=== PATIENT | female | born 1990 | race African-American/Black ===

== ENCOUNTER 2017-04-27 19:29 | Emergency (ER) | payer OTHER ==
[~2017-04-27] VITALS: Ht 160 cm; Wt 70.0 kg
[~2017-04-27 19:29] MED LIST: NO MEDS
[2017-04-27] MEDS ORDERED: ONDANSETRON HCL 4MG/2ML VIAL IV STA (20:07)
[2017-04-27] MEDS ORDERED: SODIUM CHLORIDE 0.9% 1,000 ML IV ONE (21:42)
[2017-04-27] MEDS: KETOROLAC 30MG/ML VIAL IV STA ×2 (22:01→22:29)
[2017-04-27] MEDS ORDERED: KETOROLAC 30MG/ML VIAL IV STA (22:08)
[2017-04-27 22:51] LABS: INR 1.1; PROTHROMBIN TIME 11.9 sec (9.4-11.6)
[2017-04-27 22:58] LABS: HEMATOCRIT. 48.2 % (36.0-48.0); HEMOGLOBIN. 16.4 g/dL (12.0-16.0); MEAN CORPUSCULAR HEMOGLOBIN 30.8 pg (28.0-32.0); MEAN CORPUSCULAR VOLUME 90.5 fL (81.0-99.0); PLATELET 408 x1000/uL (130-400); RED BLOOD CELL COUNT 5.33 mill/uL (4.2-5.4); RED CELL DISTRIBUTION WIDTH 12.9 % (11.6-14.6)
[2017-04-27 22:59] LABS: HCG SCREEN NEGATIVE
[2017-04-27 23:07] LABS: CHLORIDE 107 mEq/L (98-107); ETHANOL BLOOD < 10 mg/dL
[2017-04-27 23:12] LABS: PLATELET ESTIMATE SLIGHTLY INCREASED
[2017-04-28] MEDS ORDERED: METOCLOPRAMIDE HCL 10MG/2ML VIAL IV ONE (00:30)
[2017-04-28 01:41] VITALS: BP 131/74
== END 2017-04-28 00:45 | disposition home or self-care (01) ==
LOC: ER 19:39
DX: R10.13 Epigastric pain (principal); R11.2 Nausea with vomiting, unspecified; F15.10 Other stimulant abuse, uncomplicated
CPT/HCPCS: 36415; 80053; 83690; 84703; 85025; 85610; 96361; 96374; 96375; 99285; G0482; J1885; J2405; J2765; J7030; Z7610

== ENCOUNTER 2017-05-27 10:08 | Emergency (ER) | payer OTHER ==
[~2017-05-27] VITALS: Ht 160 cm; Wt 64.0 kg
[2017-05-27] MEDS ORDERED: SODIUM CHLORIDE 0.9% 1000ML BAG (SEPSIS BOLUS) IV ONE (12:00)
[2017-05-27 12:24] LABS: BASOPHILS % 0.2 % (0.0-2.0); EOSINOPHILS % 2.7 % (0.0-5.0); HEMATOCRIT. 36.7 % (36.0-48.0); HEMOGLOBIN. 12.2 g/dL (12.0-16.0); LYMPHOCYTES % 7.2 % (20.0-50.0); MEAN CORPUSCULAR HEMOGLOBIN 30.1 pg (28.0-32.0); MEAN CORPUSCULAR VOLUME 90.8 fL (81.0-99.0); MEAN PLATELET VOLUME 6.9 fl (7.4-10.4); NEUTROPHILS % 84.9 % (40.0-76.0); PLATELET 348 x1000/uL (130-400); RED BLOOD CELL COUNT 4.05 mill/uL (4.2-5.4); RED CELL DISTRIBUTION WIDTH 13.2 % (11.6-14.6)
[2017-05-27 12:26] LABS: CHLORIDE 105 mEq/L (98-107)
[2017-05-27 12:27] LABS: PROTHROMBIN TIME 10.5 sec (9.4-11.6)
[2017-05-27] MEDS ORDERED: CEFAZOLIN 1000MG PREMIX 50 ML IV ONE (12:45)
[2017-05-27 12:58] LABS: HCG SCREEN NEGATIVE
[2017-05-27 16:46] LABS: CLARITY URINE CLEAR (CLEAR); COLOR URINE YELLOW (YELLOW); KETONES URINE NEGATIVE (NEGATIVE); LEUKOCYTE ESTERASE URINE 1+ (NEGATIVE); NITRITE URINE NEGATIVE (NEGATIVE); OCCULT BLOOD URINE NEGATIVE (NEGATIVE); PROTEIN URINE NEGATIVE (NEGATIVE)
[2017-05-27] MEDS ORDERED: ACETAMINOPHEN WITH CODEINE 300/30MG TABLET PO ONE (17:15)
[2017-05-27 17:30] VITALS: BP 114/78
== END 2017-05-27 17:34 | disposition home or self-care (01) ==
LOC: ER 13:23
DX: L03.116 Cellulitis of left lower limb (principal); I88.9 Nonspecific lymphadenitis, unspecified; F17.200 Nicotine dependence, unspecified, uncomplicated; F15.10 Other stimulant abuse, uncomplicated; D72.829 Elevated white blood cell count, unspecified; Z91.81 History of falling
CPT/HCPCS: 36415; 71045; 73562; 80053; 81003; 83605; 84703; 85025; 85610; 87040; 87070; 87205; 93005; 96365; 99285; J0690; J7030; Z7610

== ENCOUNTER 2017-08-30 06:50 | Emergency (ER) | payer OTHER ==
[~2017-08-30] VITALS: Ht 160 cm; Wt 69.0 kg
[2017-08-30] MEDS ORDERED: MORPHINE SULFATE 4 MG/ML CPJ (NOT FOR IM USE) IV STA (07:11)
[2017-08-30] MEDS ORDERED: SODIUM CHLORIDE 0.9% 1,000 ML IV ONE (07:11)
[2017-08-30 07:48] LABS: BASOPHILS % 0.6 % (0.0-2.0); EOSINOPHILS % 2.3 % (0.0-5.0); HEMATOCRIT. 43.4 % (36.0-48.0); HEMOGLOBIN. 14.6 g/dL (12.0-16.0); LYMPHOCYTES % 31.9 % (20.0-50.0); MEAN CORPUSCULAR HEMOGLOBIN 30.3 pg (28.0-32.0); MEAN CORPUSCULAR VOLUME 90.1 fL (81.0-99.0); MEAN PLATELET VOLUME 6.9 fl (7.4-10.4); MONOCYTES % 6.1 % (2.0-8.0); NEUTROPHILS % 59.1 % (40.0-76.0); PLATELET 418 x1000/uL (130-400); RED BLOOD CELL COUNT 4.81 mill/uL (4.2-5.4); RED CELL DISTRIBUTION WIDTH 13.2 % (11.6-14.6)
[2017-08-30 07:54] LABS: CHLORIDE 107 mEq/L (98-107)
[2017-08-30] MEDS ORDERED: TETANUS, DIPHTHERIA, PERTUSSIS VAC/PF 0.5ML (>7YR OLD) IM ONE (09:30)
[2017-08-30] MEDS ORDERED: KETOROLAC 30MG/ML VIAL IV ONE (09:30)
[2017-08-30 11:14] VITALS: BP 118/82
== END 2017-08-30 11:16 | disposition home or self-care (01) ==
LOC: ER 06:50
DX: T23.191A Burn of first degree of multiple sites of right wrist and hand, initial encounter (principal); T23.192A Burn of first degree of multiple sites of left wrist and hand, initial encounter; T22.131A Burn of first degree of right upper arm, initial encounter; T22.132A Burn of first degree of left upper arm, initial encounter; F17.210 Nicotine dependence, cigarettes, uncomplicated; F15.10 Other stimulant abuse, uncomplicated; Z71.6 Tobacco abuse counseling; Z59.0 Homelessness; X08.8XXA Exposure to other specified smoke, fire and flames, initial encounter; Y93.89 Activity, other specified; Y92.89 Other specified places as the place of occurrence of the external cause
CPT/HCPCS: 36415; 80053; 85025; 90471; 90715; 96374; 96375; 99285; 99406; J1885; J2270; J7030; Z7610

== ENCOUNTER 2019-12-15 00:13 | Emergency (ER) | payer MEDICAID, OTHER ==
[~2019-12-15] VITALS: Ht 165.1 cm; Wt 120.0 kg
[2019-12-15 00:29] VITALS: BP 144/84
[2019-12-15] MEDS ORDERED: AZITHROMYCIN 500 MG TABLET PO ONE (01:30)
[2019-12-15] MEDS ORDERED: PENICILLIN G BENZATHINE 2,400,000 UNITS/4ML SYR IM ONE (01:30)
[2019-12-15 01:32] LABS: CLARITY URINE CLEAR (CLEAR); COLOR URINE DARK YELLOW (YELLOW); KETONES URINE 1+ (NEGATIVE); LEUKOCYTE ESTERASE URINE TRACE (NEGATIVE); NITRITE URINE NEGATIVE (NEGATIVE); OCCULT BLOOD URINE NEGATIVE (NEGATIVE); PH URINE 5.5 (4.5-8.0); PROTEIN URINE 1+ (NEGATIVE); SPECIFIC GRAVITY URINE 1.034 (1.005-1.030)
[2019-12-18 04:08] LABS: NEISSERIA GONORRHOEAE NAA Positive (Negative)
== END 2019-12-15 01:59 | disposition home or self-care (01) ==
LOC: ER 00:13
DX: N30.90 Cystitis, unspecified without hematuria (principal); N76.6 Ulceration of vulva; Z20.2 Contact with and (suspected) exposure to infections with a predominantly sexual mode of transmission; R03.0 Elevated blood-pressure reading, without diagnosis of hypertension
CPT/HCPCS: 81003; 81025; 86592; 87491; 87591; 96372; 99283; J0561

== ENCOUNTER 2020-08-09 17:58 | Emergency (ER) | payer MEDICAID ==
[~2020-08-09] VITALS: Ht 167.6 cm; Wt 80.0 kg
[2020-08-09] MEDS ORDERED: ONDANSETRON 4MG ODT PO STA (19:29)
[2020-08-09] MEDS ORDERED: ACETAMINOPHEN 325MG TABLET PO STA (19:29)
[2020-08-09 20:25] LABS: BASOPHILS % 0.3 % (0.0-2.0); EOSINOPHILS % 4.2 % (0.0-5.0); HEMATOCRIT. 45.7 % (36.0-48.0); HEMOGLOBIN. 15.7 g/dL (12.0-16.0); LYMPHOCYTES % 11.2 % (20.0-50.0); MEAN CORPUSCULAR HEMOGLOBIN 30.1 pg (28.0-32.0); MEAN CORPUSCULAR VOLUME 87.3 fL (81.0-99.0); MEAN PLATELET VOLUME 7.1 fl (7.4-10.4); MONOCYTES % 5.3 % (2.0-8.0); PLATELET 439 x1000/uL (130-400); RED BLOOD CELL COUNT 5.23 mill/uL (4.2-5.4); RED CELL DISTRIBUTION WIDTH 13.6 % (11.6-14.6)
[2020-08-09 20:34] LABS: PROTHROMBIN TIME 11.2 sec (9.6-11.0)
[2020-08-09 20:35] LABS: HCG SCREEN NEGATIVE
[2020-08-09 20:36] LABS: CHLORIDE 105 mEq/L (98-107)
[2020-08-09 23:27] VITALS: BP 130/86
== END 2020-08-09 23:54 | disposition home or self-care (01) ==
LOC: ER 17:58
DX: F15.188 Other stimulant abuse with other stimulant-induced disorder (principal); R10.84 Generalized abdominal pain
CPT/HCPCS: 36415; 80053; 83690; 84703; 85025; 85610; 99285; Q0162